=== PATIENT | male | born 2000 | race Caucasian/White ===

== ENCOUNTER 2021-08-23 21:51 | Emergency (ER) | payer OTHER ==
[~2021-08-23] VITALS: Ht 185.4 cm; Wt 88.9 kg
[2021-08-23 21:56] VITALS: BP 152/96
[2021-08-23] MEDS ORDERED: ONDANSETRON 4 MG ODT PO ONE (22:50)
[2021-08-24 00:10] VITALS: BP 120/62
== END 2021-08-24 00:13 | disposition home or self-care (01) ==
LOC: MED 21:51
DX: S09.90XA Unspecified injury of head, initial encounter (principal); V00.131A Fall from skateboard, initial encounter; Y93.89 Activity, other specified; Y92.89 Other specified places as the place of occurrence of the external cause; Y99.8 Other external cause status
CPT/HCPCS: 70450; 99284